=== PATIENT | female | born 1980 | race Hispanic/Latino ===

== ENCOUNTER → 2017-08-21 | Day surgery (SDC) | payer BC ==
[~2017-08-21] MED LIST: CEFAZOLIN SOD 1 GM VIAL ONE; DEXAMETHASONE SOD PHOS INJ 4 MG/ML VIAL ONE; FENTANYL CITRATE/PF 100MCG/2 ML INJ ONE; FERROUS SULFAT324 MG PO; IRON INFUSION IV; KETOROLAC TROMETHAMINE 30 MG/ML VIAL ONE; LIDOCAINE HCL 2% LOCAL INJ 5 ML SDV VIAL INJ ONE; MIDAZOLAM HCL 2 MG/2 ML VIAL ONE; ONDANSETRON HCL INJ 2 MG/ML VIAL ONE; PROPOFOL IV EMULSION 10 MG/ML 20 ML VIAL ONE; SEVOFLURANE INHAL SOLN 250 ML PEN BTL ONE; WOMEN'S DAILY1 EAC2 PO
--- NOTE | 2017-08-21 10:48 | Operative Report ---
DATE OF PROCEDURE: August 21, 2017 LABOR CONTRACT ANALYST: Rao Duron PA-C The patient was brought to the operating room for induction of anesthesia. Throughout this case, my PA's assistance was necessary for retraction of soft tissue and positioning of the extremity. This allows for efficient and technically successful execution of the operation and is considered medically necessary. PREOPERATIVE DIAGNOSIS: Left knee medial meniscal tear. 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 PROCEDURES 1. Left knee arthroscopy. 2. Resection of medial parapatellar plica. 3. Chondroplasty of the medial femoral condyle and trochlear groove. 4. Microfracture of medial femoral condyle. INDICATIONS: The patient is a 36-year-old lady who has a several month history of left knee pain. She has been treated with extensive conservative management, but continues to complain of pain that limits her activities. The findings and options have been discussed. The MRI is suggestive of a medial meniscal tear. The patient would like to proceed with more definitive intervention. The risks and benefits of arthroscopy have been explained. She states she understands and wishes to proceed. DESCRIPTION OF PROCEDURE: The patient was brought to the operating room and placed under general anesthetic. Her left lower extremity was prepped and draped in a sterile manner. A preoperative time out was performed. The extremity had been exsanguinated and a proximal tourniquet was inflated to 300 mmHg. Standard arthroscopy portals were established. The knee was insufflated with sterile saline and systematically inspected. The patellofemoral groove immediately demonstrated some grade 2 changes of chondromalacia. The medial femoral condyle demonstrated extensive chondromalacia varying from grade 2 to even a small area of grade 4. All unstable margins of both the trochlear groove and the medial femoral condyle were debrided back to stable margins using a 4.5-mm shaver. It was evident that this chondromalacia appeared to be a secondary kissing lesion to a large thickened medial parapatellar plica. This was also resected aggressively with the shaver. The medial compartment was further inspected. There was a 5 mm x 5 mm area of exposed subchondral bone. Microfracture was performed. This had well contained margins. The meniscus was probed and noted to be hook stable throughout. There were some minimal fraying of the free edge, but no evidence of a full-thickness tear. The tibial plateau appeared to be well-preserved. The cruciate ligaments were remarkable. The lateral compartment was unremarkable. The knee was thoroughly irrigated with sterile saline. Intraoperative photographs have been taken throughout the case. The arthroscopic instruments were removed, and the portal incisions were closed with nylon stitches. A sterile bandage was applied. She was extubated and transported to the recovery room in stable condition. Job#: [id number]
== END | disposition home or self-care (01) ==
LOC: OR 07:38
PROVIDERS: ATTEND Specialist
DX: M94.262 Chondromalacia, left knee (principal); M67.52 Plica syndrome, left knee; S83.242A Other tear of medial meniscus, current injury, left knee, initial encounter; X58.XXXA Exposure to other specified factors, initial encounter; Z68.34 Body mass index [BMI] 34.0-34.9, adult
CPT/HCPCS: 29879; 81025; J0690; J1100; J1885; J2001; J2250; J2405